=== PATIENT | female | born 1975 | race American Indian/Alaskan Native ===

== ENCOUNTER 2016-07-14 08:54 | Outpatient (CLI) | payer MEDICAID | END 2016-07-14 08:55 | disposition home or self-care (01) | LOC: US 08:54 | DX: N64.4 Mastodynia (principal) ==

== ENCOUNTER 2017-01-10 13:44 | Day surgery (SDC) | payer MEDICAID ==
[2017-01-10] MEDS ORDERED: NACL BACTERIOSTATIC INFILTRATI ONE (15:36)
--- NOTE | 2017-01-10 15:41 | Anesthesia Day of Surgery ---
Anesthesia Day of Surgery - Day of Surgery Patient Examined: Yes Patient H&P Reviewed: Yes Patient is NPO: Yes
[2017-01-10] MEDS ORDERED: PEPCID IV NR (15:42)
[2017-01-10] MEDS ORDERED: VERSED IV NR (15:42)
[2017-01-10] MEDS ORDERED: NACL 0.9% 1000 ML 1,000 ML IV SCH (15:42)
--- NOTE | 2017-01-10 15:42 | Anesthesia Consultation ---
Anesthesia Consult and Med Hx Date of service: 01/10/17 - Airway Anesthetic Teeth Evaluation: Good ROM Head & Neck: Adequate Mental/Hyoid Distance: Adequate Mallampati Class: Class I Intubation Access Assessment: Good - Pulmonary Exam CTA: Yes - Cardiac Exam Cardiac Exam: RRR - Pre-Operative Health Status ASA Pre-Surgery Classification: ASA2 Proposed Anesthetic Plan: General - Pulmonary Hx Smoking: Yes (occasional) Hx Sleep Apnea: Yes - Cardiovascular System Hx Hypertension: Yes Hx Heart Attack/AMI: No Hx Heart Murmur: No - Hematic Hx Anemia: No - Other Systems Hx Alcohol Use: No Hx Substance Use: No Hx Obesity: No - Additional Comments Anesthesia Medical History Comments: kidney stones
[2017-01-10] MEDS ORDERED: ANCEF/STERILE WATER 2 GM/20 ML IV NR (16:00)
[2017-01-10] MEDS ORDERED: DIPRIVAN 10 MG/ML IV ONE (16:44)
[2017-01-10] MEDS ORDERED: XYLOCAINE MPF 2% ONE (16:44)
[2017-01-10] MEDS ORDERED: SUBLIMAZE ONE (16:44)
[2017-01-10] MEDS ORDERED: DECADRON ONE (17:07)
[2017-01-10] MEDS ORDERED: ZOFRAN ONE (17:07)
--- NOTE | 2017-01-10 17:09 | Post Operative Note ---
Date of procedure: 01/10/17 Pre-op diagnosis: left 9mm ureteral stone Post-op diagnosis: same Findings: as above Procedure: cyso rpg stent Anesthesia: GETA Surgeon: KIRILL LAURA Estimated blood loss: minimal Condition: stable Disposition: PACU
--- NOTE | 2017-01-10 17:11 | Discharge Summary ---
Short Stay Discharge Plan Activity: other (no straining ) Weight Bearing Status: Full Weight Bearing Diet: regular Special Instructions: other (inc fluids ) Durable Medical Equipment Needed Upon Discharge: other (stent )
[2017-01-10] MEDS ORDERED: WATER FOR IRRIG STERILE IR ONE (17:45)
[2017-01-10] MEDS ORDERED: PERCOCET 5/325 PO PRN (18:06)
[2017-01-10] MEDS ORDERED: ZOFRAN IV PRN (18:06)
--- NOTE | 2017-01-10 18:06 | Post Anesthesia Evaluation ---
- Post Anesthesia Evaluation Patient Participated: Yes Airway Patent: Yes Stable Respiratory Function: Yes Temp > 96.8F: Yes Pain Manageable: Yes Adequeate Hydration: Yes Anesthesia Complications: No
[2017-01-10] MEDS: DILAUDID IV PRN ×4 (18:45→19:20)
[2017-01-10] MEDS ORDERED: TORADOL IV PRN ×2 (19:03→19:06)
[2017-01-10 21:09] VITALS: BP 126/80
--- NOTE | 2017-01-10 23:10 | Operative Report ---
PREOPERATIVE DIAGNOSIS: Left distal 9 mm distal stone. POSTOPERATIVE DIAGNOSIS: Left distal 9 mm distal stone. PROCEDURE: Cystoscopy, left retrograde, left ureteral balloon dilatation, left ureteroscopy with laser of the stone, stone extraction, double J stents. SURGEON: James Freed MD ANESTHESIA: General. FINDINGS: This woman with large distal stone and severe pain. She now presents for treatment. DESCRIPTION OF PROCEDURE: The patient was brought to the operating room and placed on the operating table. Following induction of anesthesia, placed in the lithotomy position, prepped and draped in usual sterile fashion. Left retrograde showed a large stone in distal ureter. Balloon dilatation was carried out and the stone was well visualized with the rigid ureteroscope. We did not try to extract it, we lasered it into about 6 pieces and then extracted the fragments. The patient tolerated the procedure well. The ureter was wide open. A double J coiled in the renal pelvis, we ended up we had exchanged it because the 24 cm was short, we placed a 26. The patient tolerated the procedure well and brought to recovery room in stable condition without a string. She needs followup stent removal and brought to recovery in stable condition. JOB# [id number] KESHIA/KELLY
--- NOTE | 2017-01-11 09:02 | Fluoroscopy Report ---
FLUOROSCOPY RETROGRADE UROGRAPHY: FLUOROSCOPY URETER/NEPHROSTOMY DILATATION, LEFT: History: Left ureteral stone. Findings: Fluoroscopy was provided by radiology during retrograde urography by Dr. Freed. 8 fluoroscopic images were captured. Merchandise Stocker film of the abdomen demonstrates a calcification in the left pelvis measuring approximately 6-7 mm. Subsequent images demonstrate retrograde administration of contrast the left ureter confirming this is a distal left ureteral stone. Left ureteroscopy was performed. The left ureteral stone was removed and a double-J left ureteral stent was placed which adequately drains the left collecting system on the final image. The right pyelogram was not performed. Impression: Distal left ureteral stone removal. Left ureteral stent placement.
== END 2017-01-10 20:45 | disposition home or self-care (01) ==
LOC: OR 13:44
PROVIDERS: ATTEND Urology
DX: N20.1 Calculus of ureter (principal); I10 Essential (primary) hypertension; F17.200 Nicotine dependence, unspecified, uncomplicated; Z79.899 Other long term (current) drug therapy
CPT/HCPCS: 52356; 74420; 74485; A4217; C1726; C1758; C1769; C2617; J0690; J1100; J1170; J1885; J2250; J2405; J2704; J3010; J7030; Q9967